=== PATIENT | female | born 1950 | race Caucasian/White ===

== ENCOUNTER → 2020-04-19 | Day surgery (SDC) | payer MEDICARE ==
[2020-04-17 12:55] VITALS: BMI 21.1
[~2020-04-19] MED LIST: LACTATED RINGERS 1,000 ML IV SCH; LIDOCAINE 1% (10MG/ML) FOR IV START INTRADERMA PRN; PROPOFOL 10 MG/ML 20 ML VIAL IV ONE
[2020-04-19 10:14] VITALS: TEMP 98.4
--- NOTE | 2020-04-19 11:18 | P.PCN ---
Date of Procedure: 04/19/20 Procedure(s) Performed: BRIEF HISTORY: Patient is a 69 year-old, pleasant white female scheduled for an upper endoscopy with a possible dilation as a part of evaluation of intermittent dysphagia to solids and liquids for the last 3-4 years duration.,. PROCEDURE PERFORMED: Esophagogastroduodenoscopy. With biopsy and dilation PREOPERATIVE DIAGNOSIS: Intermittent dysphagia to solids for the last 3-4 years duration. IV sedation per anesthesia. PROCEDURE: After informed consent was obtained, the patient was brought into the endoscopy unit. IV sedation was administered by Anesthesia under continuous monitoring. Initially the Olympus GIF-140 video endoscope was inserted into the mouth. Esophagus intubated without any difficulty. It was gradually advanced into the stomach and duodenum and carefully examined. The bulb and the second part of the duodenum appeared normal. The scope at this time was withdrawn to the stomach, adequately insufflated with air, and upon careful examination, mucosa of the antrum, body, cardia and the fundus appeared normal. The scope was then withdrawn into the esophagus. The GE junction was located at 39 cm from the incisors. There was a widely patent distal esophageal Schatzki's identified that was dilated using 18-20 cm TTS balloon for total of 60 seconds. There were linear erosions in the distal esophagus consistent with LA grade B reflux esophagitis The esophagus appeared normal. There were no erosions or ulcerations seen and the patient tolerated the procedure well. IMPRESSION: 1. Distal esophageal Schatzki's ring status post balloon dilation using 18, 19 and 20 mm TTS balloon as described. 2. Small hiatal hernia with LA grade B reflux esophagitis. RECOMMENDATIONS: The findings of this examination were discussed with the patient as well as a family. She was advised to be on a clear liquid diet for lunch today. She was given prescription for Prilosec 20 mg daily to be taken half hour before dinner and follow antireflux measures. She will be seen in office in 6.
[2020-04-19 11:20] VITALS: RESP 17
[2020-04-19 11:33] VITALS: BP 142/52; PULSE 61
--- NOTE | 2020-04-23 10:33 | CDI ---
Date: 04.23.2020 CDS/Consulting Nurse Name: Sanjana Douglas Phone: If any questions, call L[facility] at [phone] Patient Name: Tejal Das Admit Date 04.19.20 Discharge Date: 04.19.20 ATTENTION: The [facility] Coding Staff appreciate your assistance in clarifying documentation. Please respond to the clarification below the line at the bottom and electronically sign. The [facility] Coding staff will review the response and follow-up if needed. Please note: Queries are made part of the Legal Health Record. If you have any questions, please contact the [facility]. Dear Dr. Mohr There is a path report for a esophagus biopsy, but the biopsy was not mentioned in you EGD report please document. Thank you for your kind consideration. MTDD
== END ==
LOC: ORWHC2ENDO 09:40
PROVIDERS: ATTEND Internal Medicine Gastroenterology
DX: K22.2 Esophageal obstruction (principal); K21.0 Gastro-esophageal reflux disease with esophagitis; K44.9 Diaphragmatic hernia without obstruction or gangrene; K22.10 Ulcer of esophagus without bleeding; E78.5 Hyperlipidemia, unspecified; H40.9 Unspecified glaucoma; Z79.899 Other long term (current) drug therapy; Z91.030 Bee allergy status
CPT/HCPCS: 43249; 43239; 88305; J2704; C1726